=== PATIENT | male | born 1955 | race Asian ===

== ENCOUNTER 2019-05-29 15:21 | Emergency (ER) | payer MEDICARE, MEDICAID ==
[~2019-05-29] VITALS: Ht 165.1 cm; Wt 70.5 kg
[~2019-05-29 15:21] MED LIST: CEPH-571 PO; COLACE PO; RANI-366 PO
[2019-05-29 15:32] VITALS: BP 138/82
[2019-05-29] MEDS ORDERED: NAPR-56 PO (16:18)
== END 2019-05-29 16:31 | disposition home or self-care (01) ==
LOC: ER 15:22
DX: S80.01XA Contusion of right knee, initial encounter (principal); E78.00 Pure hypercholesterolemia, unspecified; K21.9 Gastro-esophageal reflux disease without esophagitis; Z79.2 Long term (current) use of antibiotics; Z79.899 Other long term (current) drug therapy; Z98.890 Other specified postprocedural states; W18.39XA Other fall on same level, initial encounter; Y93.89 Activity, other specified; Y92.89 Other specified places as the place of occurrence of the external cause; Y99.8 Other external cause status
CPT/HCPCS: 29505; 73564; 99284